=== PATIENT | male | born 1995 | race Caucasian/White ===

== ENCOUNTER 2018-01-01 12:46 | Emergency (ER) | payer MEDICAID ==
[~2018-01-01] VITALS: Ht 180.3 cm; Wt 96.6 kg
[2018-01-01 14:20] VITALS: BP 148/86
== END 2018-01-01 14:20 | disposition home or self-care (01) ==
LOC: ED 12:46
DX: F41.9 Anxiety disorder, unspecified (principal); F10.10 Alcohol abuse, uncomplicated; I10 Essential (primary) hypertension; F12.10 Cannabis abuse, uncomplicated
CPT/HCPCS: Q0092